=== PATIENT | female | born 1970 | race African-American/Black ===

== ENCOUNTER 2018-01-20 15:54 | Emergency (ER) | payer OTHER ==
[~2018-01-20] VITALS: Ht 167.6 cm; Wt 109.9 kg
[2018-01-20 15:55] VITALS: BP 154/119
[2018-01-20] MEDS ORDERED: LOSA100T6 PO (16:40)
[2018-01-20] MEDS ORDERED: AMLO5TAB4 PO (16:40)
== END 2018-01-20 17:02 | disposition home or self-care (01) ==
LOC: ED 16:50
DX: L25.9 Unspecified contact dermatitis, unspecified cause (principal); L20.9 Atopic dermatitis, unspecified; I10 Essential (primary) hypertension
CPT/HCPCS: 99281